=== PATIENT | male | born 1945 | race Caucasian/White ===

== ENCOUNTER 2017-05-21 10:43 | Inpatient (IN) | payer MEDICARE, MEDICAID ==
[~2017-05-21] VITALS: Ht 182.8 cm; Wt 107.7 kg
--- NOTE | ~2017-05-21 | CON ---
[place], [place] REPORT OF CONSULTATION NAME: CHIN KASPER UNIT #: [id number] ROOM: 515 DOCTOR: JULES GAYTAN ED.D (LOIS) BIRTHDATE: [birth year] DOS: 05/22/2017 HISTORY OF PRESENT ILLNESS: The patient is a 71-year-old male referred by the hospitalist for competency evaluation. At the present time, he is on the 5th floor at [facility]. He states he is and has several children who was unable to tell me how many children he actually has. He worked one time at [employer] here in [place]. MEDICAL HISTORY: Pertinent for CVA, altered mental status, COPD, depression, hypertension and diabetes mellitus type 2. His medications include Coreg, Cardizem, doxycycline, DuoNeb, insulin, Cozaar and Mobic. This patient was awake, alert and oriented to person. He was not oriented to place, although he did know he is in the hospital. He was also not oriented to time. His short and long-term memory appeared to be markedly impaired. At the present time, he does not really appear to be competent to make informed healthcare decisions and those decisions have been made by his brother, Ho, when the patient is not able to make his decisions. I did talk to Radha Mabry, the social work job titles, at [facility] and she indicated his brother makes his decisions what he is unable to do so. The patient did indicate that was satisfactory to him. In my opinion, at this point in time, I would not recommend the guardianship be established, but that all decisions should be deferred to his next of kin who is his brother. He does get somewhat delirious when he becomes very ill and is hospitalized, but does fairly well at the [facility]. DIAGNOSES: 1. Minor neurocognitive disorder -- vascular dementia. 2. Pervasive depressive disorder. RECOMMENDATIONS: 1. In my opinion, this patient's brother, who is his next of kin, should be consulted for all medical decisions. 2. In my opinion, at this time, it is not necessary to do a guardianship, but I would defer to his next of kin. JULES GAYTAN ED.Rayna CM:CONSTR:REPORT OF CONSULTATION 1721 05/22/17 [id number]
[~2017-05-21 10:43] MED LIST: AVAPRO75 MG PO; AZOR PO; COZAAR25 MG PO; DILTIAZEM CD120 MG PO; DUONEB 3 MG/3 ML3 M1 INH; HYDROCODONE BIT1 T11 PO; LANTUS100 U/ML SC; LOPRESSOR100 MG PO; METOPROLOL SR100 MG PO; NORVASC2.5 MG PO; SIMVASTATIN40 MG PO; TRAMADOL HCL50 MG PO; TYLENOL325 M1 PO; XANAX0.25 MG PO; ZOLOFT50 MG PO
[2017-05-21 10:51] VITALS: BP 150/92
[2017-05-21 12:17] LABS: BILIRUBIN NEGATIVE (NEGATIVE); BLOOD NEGATIVE (NEGATIVE); CLARITY SL CLOUDY (CLEAR); COLOR YELLOW (YELLOW); GLUCOSE TRACE (NEGATIVE); KETONE NEGATIVE (NEGATIVE); LEUKO ESTERASE NEGATIVE (NEGATIVE); NITRITE NEGATIVE (NEGATIVE); PH 5.5 (5.0-9.0); SPECIFIC GRAVITY >= 1.030 (1.005-1.030)
[2017-05-21 12:28] LABS: BACTERIA 2+; EPITHELIAL CELLS 0-2
[2017-05-21 12:42] LABS: BASO % 0.2 % (0.0-1.0); EOS # 0.2 10*3/uL (0.0-0.4); EOS % 1.1 % (1.0-4.0); HEMATOCRIT 46.6 % (42.0-52.0); HEMOGLOBIN 14.5 g/dl (14.0-18.0); LYMPH # 1.7 10*3/uL (1.3-4.4); LYMPH % 12.7 % (27.0-41.0); MEAN CELL VOLUME 84.4 fl (80.0-94.0); MEAN CORPUSCULAR HGB 26.3 pg (27.0-31.0); MEAN CORPUSCULAR HGB CONC 31.1 g/dl (33.0-37.0); MEAN PLATELET VOLUME 11.6 fl (9.6-12.3); MONO # 0.8 10*3/uL (0.1-1.0); MONO % 5.7 % (3.0-9.0); NEUT # 10.5 10*3/uL (2.3-7.9); PLATELET COUNT AUTOMATED 249 10*3/uL (130-400); RED BLOOD COUNT 5.52 10*6/uL (4.50-5.90); RED CELL DISTRI WIDTH 14.4 % (0-14.5); WHITE BLOOD COUNT 13.1 10*3/uL (4.8-10.8)
[2017-05-21 12:52] LABS: ACT PARTIAL THROMBO TIME 23.1 SECONDS (20.8-31.5)
[2017-05-21 13:01] LABS: ALBUMIN 2.7 gm/dl (3.1-4.5); ALKALINE PHOSPHATASE 90 U/L (45-117); BUN 22 mg/dl (7-24); CHLORIDE 98 mmol/L (98-107); CREATININE 1.13 mg/dL (0.70-1.30); MAGNESIUM 1.7 mg/dL (1.5-2.1); POTASSIUM 4.7 mmol/L (3.5-5.1); SGOT/AST 21 IU/L (3-35); SGPT/ALT 21 U/L (12-78); SODIUM 134 mmol/L (136-145); TOTAL PROTEIN 7.6 gm/dL (6.4-8.2)
[2017-05-21 13:03] LABS: TROPONIN I 0.821 ng/ml (<0.045)
[2017-05-21 13:10] VITALS: BP 146/94
[2017-05-21 14:41] VITALS: BP 141/85
[2017-05-21] MEDS ORDERED: TYLENOL325 M1 PO (15:43)
[2017-05-21] MEDS ORDERED: COREG6.25 MG PO (15:44)
[2017-05-21] MEDS ORDERED: CARDIZEM CD240 M1 PO (15:48)
[2017-05-21] MEDS ORDERED: DOXYCYCLINE100 M3 PO (15:49)
[2017-05-21] MEDS ORDERED: DUONEB 3 MG/3 ML3 M1 INH (15:50)
[2017-05-21 16:00] VITALS: BP 124/65
[2017-05-21] MEDS ORDERED: LANTUS SOL100 UNIT/1 SQ (16:04)
[2017-05-21] MEDS ORDERED: LASIX20 MG PO (16:52)
[2017-05-21] MEDS ORDERED: LEXAPRO20 MG PO (16:53)
[2017-05-21] MEDS ORDERED: COZAAR100 MG PO (16:54)
[2017-05-21] MEDS ORDERED: MOBIC15 MG PO (16:56)
[2017-05-21] MEDS ORDERED: MILK OF MA400 MG/51 PO (16:56)
[2017-05-21 20:00] VITALS: BP 136/85
[2017-05-21 23:42] LABS: TROPONIN I 12.4 ng/ml (<0.045)
[2017-05-21 23:43] LABS: CKMB 23.2 ng/ml (0.5-3.6)
[2017-05-22] VITALS: BP 124/73
[2017-05-22 05:51] LABS: BASO % 0.3 % (0.0-1.0); EOS # 0.1 10*3/uL (0.0-0.4); EOS % 1.2 % (1.0-4.0); HEMATOCRIT 41.5 % (42.0-52.0); HEMOGLOBIN 12.7 g/dl (14.0-18.0); LYMPH # 1.7 10*3/uL (1.3-4.4); LYMPH % 16.2 % (27.0-41.0); MEAN CELL VOLUME 84.9 fl (80.0-94.0); MEAN CORPUSCULAR HGB CONC 30.6 g/dl (33.0-37.0); MEAN PLATELET VOLUME 11.8 fl (9.6-12.3); MONO # 0.9 10*3/uL (0.1-1.0); MONO % 8.4 % (3.0-9.0); NEUT # 7.6 10*3/uL (2.3-7.9); NEUT % 73.5 % (47.0-73.0); PLATELET COUNT AUTOMATED 215 10*3/uL (130-400); RED BLOOD COUNT 4.89 10*6/uL (4.50-5.90); RED CELL DISTRI WIDTH 14.4 % (0-14.5); WHITE BLOOD COUNT 10.4 10*3/uL (4.8-10.8)
[2017-05-22 05:57] LABS: ALBUMIN 2.2 gm/dl (3.1-4.5); ALKALINE PHOSPHATASE 74 U/L (45-117); BUN 21 mg/dl (7-24); CHLORIDE 100 mmol/L (98-107); CHOLESTEROL 174 mg/dL (<200); CPK 202 U/L (39-308); CREATININE 1.06 mg/dL (0.70-1.30); FREE T4 1.38 ng/dl (0.76-1.46); HDL CHOLESTEROL 34 mg/dl (40-60); LDH 175 U/L (87-241); LDL CHOLESTEROL 121 mg/dL (9-159); MAGNESIUM 1.4 mg/dL (1.5-2.1); POTASSIUM 4.5 mmol/L (3.5-5.1); SGOT/AST 47 IU/L (3-35); SGPT/ALT 22 U/L (12-78); SODIUM 137 mmol/L (136-145); TOTAL PROTEIN 6.3 gm/dL (6.4-8.2); TRIGLYCERIDES 95 mg/dl (<150); VLDL CHOLESTEROL 19 mg/dL (6-40)
[2017-05-22 06:14] LABS: CKMB 21.2 ng/ml (0.5-3.6)
[2017-05-22 06:19] LABS: ACT PARTIAL THROMBO TIME 36.6 SECONDS (20.8-31.5)
[2017-05-22 08:00] VITALS: BP 104/61
[2017-05-22 08:04] LABS: VITAMIN D, 25-HYDROXY 23.6 ng/mL (30-100)
[2017-05-22 09:40] VITALS: BP 130/70
[2017-05-22 12:00] VITALS: BP 100/57
[2017-05-22 16:00] VITALS: BP 99/61
[2017-05-22 20:00] VITALS: BP 151/80
[2017-05-23] VITALS: BP 111/70
[2017-05-23 03:22] LABS: BASO % 0.4 % (0.0-1.0); EOS # 0.3 10*3/uL (0.0-0.4); EOS % 2.5 % (1.0-4.0); HEMATOCRIT 40.6 % (42.0-52.0); HEMOGLOBIN 12.5 g/dl (14.0-18.0); LYMPH # 1.7 10*3/uL (1.3-4.4); LYMPH % 17.1 % (27.0-41.0); MEAN CELL VOLUME 83.9 fl (80.0-94.0); MEAN CORPUSCULAR HGB 25.8 pg (27.0-31.0); MEAN CORPUSCULAR HGB CONC 30.8 g/dl (33.0-37.0); MEAN PLATELET VOLUME 11.3 fl (9.6-12.3); MONO # 0.9 10*3/uL (0.1-1.0); MONO % 9.4 % (3.0-9.0); NEUT % 70.3 % (47.0-73.0); PLATELET COUNT AUTOMATED 195 10*3/uL (130-400); RED BLOOD COUNT 4.84 10*6/uL (4.50-5.90); RED CELL DISTRI WIDTH 14.6 % (0-14.5); WHITE BLOOD COUNT 9.9 10*3/uL (4.8-10.8)
[2017-05-23 03:36] LABS: BUN 20 mg/dl (7-24); CHLORIDE 98 mmol/L (98-107); CREATININE 1.03 mg/dL (0.70-1.30); POTASSIUM 4.3 mmol/L (3.5-5.1); SODIUM 138 mmol/L (136-145)
[2017-05-23 08:00] VITALS: BP 110/71
[2017-05-23 11:50] VITALS: BP 119/75
[2017-05-23 16:00] VITALS: BP 104/61
[2017-05-23 20:00] VITALS: BP 115/76
[2017-05-24] VITALS: BP 107/55
[2017-05-24 08:00] VITALS: BP 116/58
[2017-05-24 12:00] VITALS: BP 110/58
[2017-05-24 16:00] VITALS: BP 118/62; BP 126/78
[2017-05-24 20:00] VITALS: BP 137/83
[2017-05-25] VITALS: BP 119/63
[2017-05-25 06:48] LABS: BASO % 0.2 % (0.0-1.0); EOS # 0.3 10*3/uL (0.0-0.4); EOS % 3.7 % (1.0-4.0); HEMATOCRIT 40.6 % (42.0-52.0); HEMOGLOBIN 12.7 g/dl (14.0-18.0); LYMPH # 1.6 10*3/uL (1.3-4.4); LYMPH % 17.7 % (27.0-41.0); MEAN CELL VOLUME 84.4 fl (80.0-94.0); MEAN CORPUSCULAR HGB 26.4 pg (27.0-31.0); MEAN CORPUSCULAR HGB CONC 31.3 g/dl (33.0-37.0); MONO # 0.9 10*3/uL (0.1-1.0); MONO % 10.5 % (3.0-9.0); NEUT # 5.9 10*3/uL (2.3-7.9); NEUT % 67.6 % (47.0-73.0); PLATELET COUNT AUTOMATED 166 10*3/uL (130-400); RED BLOOD COUNT 4.81 10*6/uL (4.50-5.90); RED CELL DISTRI WIDTH 14.8 % (0-14.5); WHITE BLOOD COUNT 8.8 10*3/uL (4.8-10.8)
[2017-05-25 07:04] LABS: BUN 13 mg/dl (7-24); CHLORIDE 101 mmol/L (98-107); CREATININE 0.92 mg/dL (0.70-1.30); SODIUM 140 mmol/L (136-145)
[2017-05-25 08:00] VITALS: BP 125/72
[2017-05-25] MEDS ORDERED: ALDACTONE25 MG PO (09:35)
[2017-05-25] MEDS ORDERED: LEVAQUIN750 M1 PO (09:36)
[2017-05-25 12:00] VITALS: BP 127/67
== END 2017-05-25 17:05 | disposition home or self-care (01) | DRG 871 ==
LOC: ED 10:43 → 5E 13:48 → EDHOLD 13:48 → 5E 14:17
PROVIDERS: Emergency Medicine; Family Medicine; Internal Medicine; Internal Medicine Cardiovascular Disease; ADMIT Internal Medicine
DX: A41.9 Sepsis, unspecified organism (principal); G93.41 Metabolic encephalopathy; I21.4 Non-ST elevation (NSTEMI) myocardial infarction; E43 Unspecified severe protein-calorie malnutrition; I11.0 Hypertensive heart disease with heart failure; J18.1 Lobar pneumonia, unspecified organism; E11.65 Type 2 diabetes mellitus with hyperglycemia; I50.9 Heart failure, unspecified; E87.1 Hypo-osmolality and hyponatremia; J44.0 Chronic obstructive pulmonary disease with (acute) lower respiratory infection; I69.351 Hemiplegia and hemiparesis following cerebral infarction affecting right dominant side; Z51.5 Encounter for palliative care; F32.89 Other specified depressive episodes; Z66 Do not resuscitate; R65.20 Severe sepsis without septic shock; F01.50 Vascular dementia, unspecified severity, without behavioral disturbance, psychotic disturbance, mood disturbance, and anxiety; E78.2 Mixed hyperlipidemia; E83.42 Hypomagnesemia; Z79.899 Other long term (current) drug therapy; Z98.42 Cataract extraction status, left eye; Z82.49 Family history of ischemic heart disease and other diseases of the circulatory system; Z68.31 Body mass index [BMI] 31.0-31.9, adult